=== PATIENT | female | born 1970 | race Two or more races ===

== ENCOUNTER 2023-03-30 17:17 | Emergency (ER) | payer SELFPAY ==
[~2023-03-30] VITALS: Ht 157.5 cm; Wt 73.1 kg
[2023-03-30 18:05] VITALS: BP 108/66; PULSE 96; RESP 18; TEMP 96.9; O2SAT 97
[2023-03-30] MEDS ORDERED: HYDROcodone-ACET 10/325MG TAB PO ONE (19:30)
[2023-03-30] MEDS ORDERED: DexAMETHasone SOD PHOS 10MG/1ML VIAL INJ IM ONE (19:30)
[2023-03-30] MEDS ORDERED: CYCL-837 PO (20:16)
== END 2023-03-30 20:17 | disposition home or self-care (01) ==
LOC: ER 17:17
DX: M54.41 Lumbago with sciatica, right side (principal); J45.909 Unspecified asthma, uncomplicated; X50.1XXA Overexertion from prolonged static or awkward postures, initial encounter; Y93.89 Activity, other specified; Y92.89 Other specified places as the place of occurrence of the external cause; Y99.8 Other external cause status
CPT/HCPCS: 96372; 99283; J1100

== ENCOUNTER 2023-04-12 14:07 | Emergency (ER) | payer BC ==
[~2023-04-12] VITALS: Ht 157.5 cm; Wt 60.0 kg
[~2023-04-12 14:07] MED LIST: CYCL-837 PO
[2023-04-12 15:30] VITALS: BP 104/59; PULSE 97; RESP 18; TEMP 98.6; O2SAT 99
[2023-04-12] MEDS ORDERED: IBUP-1456 PO (16:01)
== END 2023-04-12 16:07 | disposition home or self-care (01) ==
LOC: ER 14:07
DX: S83.91XA Sprain of unspecified site of right knee, initial encounter (principal); J45.909 Unspecified asthma, uncomplicated; Z79.1 Long term (current) use of non-steroidal anti-inflammatories (NSAID); Z79.899 Other long term (current) drug therapy; X50.1XXA Overexertion from prolonged static or awkward postures, initial encounter; Y93.89 Activity, other specified; Y92.89 Other specified places as the place of occurrence of the external cause; Y99.8 Other external cause status
CPT/HCPCS: 73562